=== PATIENT | male | born 2005 | race Caucasian/White ===

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

== ENCOUNTER → 2024-09-08 10:43 | Outpatient (BNVA) | payer BC, SELFPAY | PROVIDERS: Visit Provider Nurse Practitioner | DX: R35.0 Frequency of micturition (principal); E66.9 Obesity, unspecified | CPT/HCPCS: 80053; 80061; 81000; 84443 ==

== ENCOUNTER 2024-12-16 10:57 | Outpatient (CLI) | payer BC, MEDICAID, SELFPAY ==
--- NOTE | 2024-12-16 11:01 | XRR_ITS ---
PROCEDURE INFORMATION: Exam: XR Thoracic Spine Exam date and time: 12/16/2024 11:16 AM Age: 19 years old Clinical indication: Pain in thoracic spine; Mid to lower back aching pains that turn to shooting pains when standing up x 6 mo, bilateral numbness in feet and hands; Additional info: M54.9 - dorsalgia, unspecified TECHNIQUE: Imaging protocol: Radiologic exam of the thoracic spine. Views: 3 views. COMPARISON: CR XR chest 2V* [id number] 08/26/2018 2:49 PM FINDINGS: Bones/joints: Normal. No acute fracture. Normal alignment. Soft tissues: Unremarkable. XR/XR thoracic spine 3V* [id number] IMPRESSION: No acute findings.
--- NOTE | 2024-12-16 11:01 | XR_ITS ---
WS: [id number] XR lumbar spine 2-3V* [id number] REASON FOR EXAM: M54.9 - Dorsalgia, unspecified FINDINGS: Minimal rotatory levoscoliosis of the lumbar spine. Normal lordosis. No vertebral body abnormality. Intervertebral disc spaces are intact and well preserved. No spondylolysis. No significant spondylolisthesis. XR/XR lumbar spine 2-3V* [id number] IMPRESSION: No significant abnormality.
== END 2024-12-16 10:58 | disposition home or self-care (01) ==
LOC: RAD 11:01
PROVIDERS: PCP Nurse Practitioner; Visit Provider Nurse Practitioner
DX: M54.9 Dorsalgia, unspecified (principal)
CPT/HCPCS: 72072; 72100